=== PATIENT | male | born 1965 | race Asian ===

== ENCOUNTER 2018-12-26 10:38 | Emergency (ER) | payer OTHER ==
[~2018-12-26] VITALS: Ht 177.8 cm; Wt 73.0 kg
[~2018-12-26 10:38] MED LIST: ASPIRIN; BACLOFEN; CHOLESTEROL MEDS; NORCO; VICODIN; VITAMINS
[2018-12-26] MEDS ORDERED: ONDANSETRON HCL 4MG/2ML INJ IV STA (11:13)
[2018-12-26] MEDS ORDERED: MORPHINE SULFATE 4 MG/ML CPJ (NOT FOR IM USE) IV STA (11:13)
[2018-12-26] MEDS ORDERED: SODIUM CHLORIDE 0.9% 1000ML BAG (SEPSIS BOLUS) IV ONE (11:15)
[2018-12-26] MEDS ORDERED: CEFTRIAXONE 1 G PREMIX 50 ML IV ONE (11:15)
[2018-12-26 11:43] LABS: BASOPHILS % 0.5 % (0.0-2.0); EOSINOPHILS % 1.7 % (0.0-5.0); HEMATOCRIT. 42.3 % (42.0-52.0); HEMOGLOBIN. 14.4 g/dL (14.0-18.0); LYMPHOCYTES % 26.7 % (20.0-50.0); MEAN CORPUSCULAR HEMOGLOBIN 30.1 pg (28.0-32.0); MEAN CORPUSCULAR VOLUME 88.1 fL (80.0-94.0); MEAN PLATELET VOLUME 6.7 fl (7.4-10.4); MONOCYTES % 5.7 % (2.0-8.0); NEUTROPHILS % 65.4 % (40.0-76.0); PLATELET 326 x1000/uL (130-400); RED CELL DISTRIBUTION WIDTH 14.4 % (11.6-14.6)
[2018-12-26] MEDS ORDERED: CEFTRIAXONE 1 G PREMIX 50 ML IV SCH (11:45)
[2018-12-26] MEDS ORDERED: MORPHINE SULFATE 4 MG/ML CPJ (NOT FOR IM USE) IV SCH (11:45)
[2018-12-26] MEDS ORDERED: ONDANSETRON HCL 4MG/2ML INJ IV SCH (11:45)
[2018-12-26 11:46] LABS: CHLORIDE 102 mEq/L (98-107)
[2018-12-26 11:47] LABS: PARTIAL THROMBOPLASTIN TIME 31.1 sec (23.4-31.0); PROTHROMBIN TIME 10.4 sec (9.6-11.0)
[2018-12-26 11:52] LABS: CLARITY URINE CLOUDY (CLEAR); COLOR URINE YELLOW (YELLOW); KETONES URINE NEGATIVE (NEGATIVE); LEUKOCYTE ESTERASE URINE 3+ (NEGATIVE); NITRITE URINE POSITIVE (NEGATIVE); OCCULT BLOOD URINE NEGATIVE (NEGATIVE); PH URINE 8.5 (4.5-8.0); PROTEIN URINE NEGATIVE (NEGATIVE); SPECIFIC GRAVITY URINE 1.009 (1.005-1.030); UROBILINOGEN URINE 0.2 E.U./dL (0.2-1.0)
[2018-12-26] MEDS ORDERED: HYDROCODONE/ACETAMINOPHEN 5/325MG TABLET PO ONE (13:45)
[2018-12-26 14:13] VITALS: BP 137/68
== END 2018-12-26 14:51 | disposition short-term general hospital (02) ==
LOC: ER 10:38
DX: A41.9 Sepsis, unspecified organism (principal); N39.0 Urinary tract infection, site not specified; G82.20 Paraplegia, unspecified; Z93.3 Colostomy status
CPT/HCPCS: 36415; 71045; 80053; 81003; 83605; 83690; 83880; 84145; 84484; 85025; 85610; 85730; 87040; 87077; 87086; 87186; 93005; 96365; 96375; 99285; J0696; J2270; J2405; J7030

== ENCOUNTER 2019-02-17 08:10 | Emergency (ER) | payer OTHER ==
[~2019-02-17] VITALS: Ht 175.3 cm; Wt 80.0 kg
[2019-02-17] MEDS ORDERED: MORPHINE SULFATE 4 MG/ML CPJ (NOT FOR IM USE) IV STA (09:18)
[2019-02-17] MEDS ORDERED: ONDANSETRON HCL 4MG/2ML INJ IV STA (09:18)
[2019-02-17] MEDS ORDERED: SODIUM CHLORIDE 0.9% 1000ML BAG (SEPSIS BOLUS) IV ONE (09:30)
[2019-02-17 09:50] LABS: BASOPHILS % 0.2 % (0.0-2.0); EOSINOPHILS % 0.1 % (0.0-5.0); HEMATOCRIT. 46.8 % (42.0-52.0); HEMOGLOBIN. 15.5 g/dL (14.0-18.0); MEAN CORPUSCULAR HEMOGLOBIN 30.2 pg (28.0-32.0); MEAN CORPUSCULAR VOLUME 90.8 fL (80.0-94.0); MEAN PLATELET VOLUME 7.1 fl (7.4-10.4); MONOCYTES % 4.5 % (2.0-8.0); NEUTROPHILS % 82.2 % (40.0-76.0); PLATELET 459 x1000/uL (130-400); RED BLOOD CELL COUNT 5.15 mill/uL (4.7-6.1)
[2019-02-17 09:55] LABS: CHLORIDE 104 mEq/L (98-107)
[2019-02-17] MEDS ORDERED: VANCOMYCIN 1 G PREMIX 200 ML IV ONE (10:15)
[2019-02-17] MEDS ORDERED: PIPERACILLIN/TAZ 3.375G PREMIX 50 ML IV ONE (10:15)
[2019-02-17 11:09] LABS: CLARITY URINE TURBID (CLEAR); COLOR URINE YELLOW (YELLOW); KETONES URINE TRACE (NEGATIVE); LEUKOCYTE ESTERASE URINE 3+ (NEGATIVE); NITRITE URINE POSITIVE (NEGATIVE); OCCULT BLOOD URINE 1+ (NEGATIVE); PH URINE 5.5 (4.5-8.0); PROTEIN URINE 1+ (NEGATIVE); SPECIFIC GRAVITY URINE 1.032 (1.005-1.030); UROBILINOGEN URINE 0.2 E.U./dL (0.2-1.0)
[2019-02-17 12:28] VITALS: BP 155/100
== END 2019-02-17 13:20 | disposition short-term general hospital (02) ==
LOC: ER 08:17 → CANBEDREQ 12:58 → ER 13:20
DX: A41.9 Sepsis, unspecified organism (principal); L89.159 Pressure ulcer of sacral region, unspecified stage; L08.89 Other specified local infections of the skin and subcutaneous tissue; I10 Essential (primary) hypertension; G82.20 Paraplegia, unspecified; T14.8XXS Other injury of unspecified body region, sequela; Z85.038 Personal history of other malignant neoplasm of large intestine; Z93.3 Colostomy status
CPT/HCPCS: 36415; 71045; 74176; 80053; 81003; 83605; 85025; 85610; 87040; 87077; 87086; 87186; 93005; 96361; 96365; 96368; 96375; 99285; J2270; J2405; J2543; J3370; J7030; Z7610

== ENCOUNTER 2019-11-21 15:39 | Emergency (ER) | payer OTHER ==
[~2019-11-21] VITALS: Ht 175.3 cm; Wt 71.0 kg
[2019-11-21] MEDS ORDERED: SODIUM CHLORIDE 0.9% 1,000 ML IV ONE (18:09)
[2019-11-21] MEDS ORDERED: ONDANSETRON HCL 4MG/2ML INJ IV STA ×2 (18:09→21:50)
[2019-11-21] MEDS ORDERED: MORPHINE SULFATE 4 MG/ML CPJ (NOT FOR IM USE) IV STA ×2 (18:09→21:50)
[2019-11-21] MEDS ORDERED: PIPERACILLIN/TAZ 3.375G PREMIX 50 ML IV ONE (18:15)
[2019-11-21] MEDS ORDERED: VANCOMYCIN 1 G PREMIX 200 ML IV ONE (18:15)
[2019-11-21 19:03] LABS: BASOPHILS % 0.9 % (0.0-2.0); EOSINOPHILS % 3.4 % (0.0-5.0); HEMATOCRIT. 33.3 % (42.0-52.0); LYMPHOCYTES % 20.1 % (20.0-50.0); MEAN CORPUSCULAR HEMOGLOBIN 28.9 pg (28.0-32.0); MEAN CORPUSCULAR VOLUME 87.6 fL (80.0-94.0); MEAN PLATELET VOLUME 6.8 fl (7.4-10.4); MONOCYTES % 8.7 % (2.0-8.0); NEUTROPHILS % 66.9 % (40.0-76.0); PLATELET 442 x1000/uL (130-400); RED BLOOD CELL COUNT 3.81 mill/uL (4.7-6.1); RED CELL DISTRIBUTION WIDTH 14.5 % (11.6-14.6)
[2019-11-21 19:08] LABS: CHLORIDE 108 mEq/L (98-107)
[2019-11-21 19:55] LABS: CLARITY URINE CLOUDY (CLEAR); COLOR URINE YELLOW (YELLOW); KETONES URINE NEGATIVE (NEGATIVE); LEUKOCYTE ESTERASE URINE 1+ (NEGATIVE); NITRITE URINE POSITIVE (NEGATIVE); OCCULT BLOOD URINE NEGATIVE (NEGATIVE); PH URINE 7.5 (4.5-8.0); PROTEIN URINE NEGATIVE (NEGATIVE); SPECIFIC GRAVITY URINE 1.019 (1.005-1.030)
[2019-11-21] MEDS ORDERED: CEFTRIAXONE 1 G PREMIX 50 ML IV ONE (20:00)
[2019-11-21 23:00] VITALS: BP 161/84
== END 2019-11-21 23:15 | disposition home or self-care (01) ==
LOC: ER 15:39 → CANBEDREQ 23:22
DX: N30.00 Acute cystitis without hematuria (principal); L89.159 Pressure ulcer of sacral region, unspecified stage; G82.20 Paraplegia, unspecified; F17.290 Nicotine dependence, other tobacco product, uncomplicated; I10 Essential (primary) hypertension; Z85.9 Personal history of malignant neoplasm, unspecified; Z79.899 Other long term (current) drug therapy
CPT/HCPCS: 36415; 71045; 80053; 81003; 83605; 85025; 87040; 87804; 93005; 96365; 96367; 96368; 96375; 96376; 99285; J0696; J2270; J2405; J2543; J3370; J7030

== ENCOUNTER 2020-09-25 12:16 | Inpatient (IN) | payer OTHER ==
[~2020-09-25] VITALS: Ht 175.3 cm; Wt 86.2 kg
[2020-09-25 13:47] LABS: BASOPHILS % 0.3 % (0.0-2.0); EOSINOPHILS % 0.1 % (0.0-5.0); HEMATOCRIT. 37.4 % (42.0-52.0); HEMOGLOBIN. 11.3 g/dL (14.0-18.0); LYMPHOCYTES % 11.3 % (20.0-50.0); MEAN CORPUSCULAR VOLUME 69.6 fL (80.0-94.0); MEAN PLATELET VOLUME 7.3 fl (7.4-10.4); MONOCYTES % 6.6 % (2.0-8.0); NEUTROPHILS % 81.7 % (40.0-76.0); PLATELET 493 x1000/uL (130-400); RED BLOOD CELL COUNT 5.38 mill/uL (4.7-6.1); RED CELL DISTRIBUTION WIDTH 18.2 % (11.6-14.6)
[2020-09-25 13:52] LABS: CHLORIDE 101 mEq/L (98-107)
[2020-09-25 13:54] LABS: PROTHROMBIN TIME 10.8 sec (9.6-11.0)
[2020-09-25 14:10] LABS: CLARITY URINE TURBID (CLEAR); COLOR URINE DARK YELLOW (YELLOW); KETONES URINE TRACE (NEGATIVE); LEUKOCYTE ESTERASE URINE 3+ (NEGATIVE); NITRITE URINE NEGATIVE (NEGATIVE); OCCULT BLOOD URINE NEGATIVE (NEGATIVE); PH URINE >=9.0 (4.5-8.0); PROTEIN URINE 2+ (NEGATIVE); SPECIFIC GRAVITY URINE 1.035 (1.005-1.030)
[2020-09-25] MEDS ORDERED: MORPHINE SULFATE 4 MG/ML CPJ (NOT FOR IM USE) IV STA (14:15)
[2020-09-25] MEDS ORDERED: SODIUM CHLORIDE 0.9% 1,000 ML IV ONE (14:15)
[2020-09-25] MEDS ORDERED: ONDANSETRON HCL 4MG/2ML INJ IV STA (14:15)
[2020-09-25 14:57] LABS: PLATELET ESTIMATE INCREASED
[2020-09-25] MEDS ORDERED: CEFTRIAXONE 1 G PREMIX 50 ML IV ONE (15:00)
[2020-09-25 17:26] VITALS: BP 117/69
[2020-09-25] MEDS ORDERED: ATOR20TA MT (17:52)
[2020-09-25] MEDS: SODIUM CHLORIDE 0.9% 1,000 ML IV SCH (18:45)
[2020-09-25] MEDS ORDERED: ONDANSETRON HCL 4MG/2ML INJ IV PRN (18:45)
[2020-09-25] MEDS ORDERED: ACETAMINOPHEN 650MG SUPP PR PRN ×2 (18:45)
[2020-09-25] MEDS ORDERED: LORAZEPAM 2MG/ML CPJ IV PRN (18:45)
[2020-09-25 20:00] VITALS: BP 121/73
[2020-09-25] MEDS ORDERED: ENOXAPARIN 40MG/0.4ML SYR SUBCUT SCH (20:00)
[2020-09-25] MEDS: PANTOPRAZOLE SODIUM 40 MG/VIAL IV SCH (22:05)
[2020-09-25] MEDS: LEVOFLOXACIN 500MG PREMIX 100 ML IV SCH (22:21)
[2020-09-25] MEDS: MORPHINE SULFATE 4 MG/ML CPJ (NOT FOR IM USE) IV PRN (22:28)
[2020-09-26] VITALS: BP 101/55
[2020-09-26] MEDS: SODIUM CHLORIDE 0.9% 1,000 ML IV SCH ×3 (02:16→15:24)
[2020-09-26] MEDS: MORPHINE SULFATE 4 MG/ML CPJ (NOT FOR IM USE) IV PRN ×5 (03:21→22:46)
[2020-09-26 04:00] VITALS: BP 129/74
[2020-09-26 08:00] VITALS: BP 120/69
[2020-09-26] MEDS: PANTOPRAZOLE SODIUM 40 MG/VIAL IV SCH (08:17)
[2020-09-26 12:00] VITALS: BP 119/60
[2020-09-26 13:07] LABS: BASOPHILS % 0.6 % (0.0-2.0); EOSINOPHILS % 1.9 % (0.0-5.0); HEMATOCRIT. 30.3 % (42.0-52.0); HEMOGLOBIN. 9.1 g/dL (14.0-18.0); LYMPHOCYTES % 17.9 % (20.0-50.0); MEAN CORPUSCULAR HEMOGLOBIN 20.9 pg (28.0-32.0); MEAN CORPUSCULAR VOLUME 69.4 fL (80.0-94.0); MEAN PLATELET VOLUME 7.4 fl (7.4-10.4); MONOCYTES % 9.5 % (2.0-8.0); NEUTROPHILS % 70.1 % (40.0-76.0); PLATELET 335 x1000/uL (130-400); RED BLOOD CELL COUNT 4.36 mill/uL (4.7-6.1); RED CELL DISTRIBUTION WIDTH 17.7 % (11.6-14.6)
[2020-09-26 14:00] LABS: CHLORIDE 110 mEq/L (98-107); PHOSPHORUS 3.2 mg/dL (2.5-4.9)
[2020-09-26 16:00] VITALS: BP 157/85
[2020-09-26] MEDS ORDERED: THROAT LOZENGES-BENZOCAINE/MENTH/CETYLPYRD CL LOZENGES MM PRN (18:00)
[2020-09-26 20:00] VITALS: BP 130/71
[2020-09-26] MEDS: LEVOFLOXACIN 500MG PREMIX 100 ML IV SCH (20:40)
[2020-09-27] VITALS: BP 121/67
[2020-09-27] MEDS: SODIUM CHLORIDE 0.9% 1,000 ML IV SCH (03:03)
[2020-09-27] MEDS: MORPHINE SULFATE 4 MG/ML CPJ (NOT FOR IM USE) IV PRN ×2 (03:03→08:55)
[2020-09-27 04:00] VITALS: BP 113/66
[2020-09-27 08:00] VITALS: BP 115/62
[2020-09-27] MEDS: PANTOPRAZOLE SODIUM 40 MG/VIAL IV SCH (08:55)
[2020-09-27 12:00] VITALS: BP 102/58
[2020-09-27] MEDS ORDERED: SODIUM HYPOCHLORITE 0.125% 473ML SOLUTION TOP PRN (14:00)
[2020-09-27] MEDS: DEXT 5%/0.45% NACL KCL 20MEQ/L 1,000 ML IV SCH (14:02)
[2020-09-27 16:00] VITALS: BP 99/46
[2020-09-27] MEDS: MORPHINE SULFATE 2 MG/ML CPJ (NOT FOR IM USE) IV PRN ×2 (16:14→20:32)
[2020-09-27 20:00] VITALS: BP 114/55
[2020-09-27] MEDS: LEVOFLOXACIN 500MG PREMIX 100 ML IV SCH (20:23)
[2020-09-28] VITALS: BP 113/57
[2020-09-28] MEDS: DEXT 5%/0.45% NACL KCL 20MEQ/L 1,000 ML IV SCH ×3 (01:26→21:12)
[2020-09-28] MEDS: MORPHINE SULFATE 2 MG/ML CPJ (NOT FOR IM USE) IV PRN ×5 (01:27→18:36)
[2020-09-28 04:00] VITALS: BP 100/55
[2020-09-28 08:00] VITALS: BP 116/52
[2020-09-28] MEDS: PANTOPRAZOLE SODIUM 40 MG/VIAL IV SCH (09:34)
[2020-09-28 20:00] VITALS: BP 125/54
[2020-09-28] MEDS: LEVOFLOXACIN 500MG PREMIX 100 ML IV SCH (21:12)
[2020-09-29] VITALS: BP 137/69
[2020-09-29] MEDS: MORPHINE SULFATE 2 MG/ML CPJ (NOT FOR IM USE) IV PRN ×4 (00:26→18:23)
[2020-09-29 04:00] VITALS: BP 130/76
[2020-09-29 08:00] VITALS: BP 126/74
[2020-09-29] MEDS: PANTOPRAZOLE SODIUM 40 MG/VIAL IV SCH (09:42)
[2020-09-29 12:00] VITALS: BP 130/74
[2020-09-29] MEDS: DEXT 5%/0.45% NACL KCL 20MEQ/L 1,000 ML IV SCH (14:31)
[2020-09-29] MEDS: SODIUM CHLORIDE 0.9% 1,000 ML IV SCH (18:23)
[2020-09-29 20:00] VITALS: BP 130/86
[2020-09-30] VITALS: BP 113/70
[2020-09-30] MEDS: LEVOFLOXACIN 500MG PREMIX 100 ML IV SCH ×2 (00:04→21:28)
[2020-09-30] MEDS: MORPHINE SULFATE 2 MG/ML CPJ (NOT FOR IM USE) IV PRN ×6 (00:06→22:26)
[2020-09-30] MEDS: DEXT 5%/0.45% NACL KCL 20MEQ/L 1,000 ML IV SCH (01:58)
[2020-09-30 04:00] VITALS: BP 117/64
[2020-09-30 08:00] VITALS: BP 113/71
[2020-09-30] MEDS: PANTOPRAZOLE SODIUM 40 MG/VIAL IV SCH (09:13)
[2020-09-30 12:00] VITALS: BP 101/65
[2020-09-30] MEDS: SODIUM CHLORIDE 0.9% 1,000 ML IV SCH (13:58)
[2020-09-30 16:00] VITALS: BP 106/62
[2020-09-30 20:00] VITALS: BP 111/71
[2020-10-01] VITALS: BP 113/60
[2020-10-01] MEDS: MORPHINE SULFATE 2 MG/ML CPJ (NOT FOR IM USE) IV PRN ×5 (02:35→19:23)
[2020-10-01] MEDS: DEXT 5%/0.45% NACL KCL 20MEQ/L 1,000 ML IV SCH (02:38)
[2020-10-01 08:00] VITALS: BP 115/71
[2020-10-01] MEDS: PANTOPRAZOLE SODIUM 40 MG/VIAL IV SCH (09:24)
[2020-10-01] MEDS ORDERED: DIATR MEGLU/DIATRIZOATE SOLN 120ML ONE (10:38)
[2020-10-01 16:00] VITALS: BP 102/64
[2020-10-01 20:00] VITALS: BP 105/65
[2020-10-02] VITALS: BP 107/58
[2020-10-02] MEDS: MORPHINE SULFATE 2 MG/ML CPJ (NOT FOR IM USE) IV PRN ×5 (00:38→23:30)
[2020-10-02 04:00] VITALS: BP 121/66
[2020-10-02 08:00] VITALS: BP 102/60
[2020-10-02] MEDS: FAMOTIDINE 20MG/2ML VIAL IV SCH ×2 (09:45→21:23)
[2020-10-02] MEDS: SODIUM CHLORIDE 0.9% 1,000 ML IV SCH (11:27)
[2020-10-02 12:00] VITALS: BP 116/65
[2020-10-02 16:00] VITALS: BP 109/56
[2020-10-02 20:00] VITALS: BP 142/70
[2020-10-03] VITALS: BP 114/74
[2020-10-03 04:00] VITALS: BP 124/71
[2020-10-03] MEDS: MORPHINE SULFATE 2 MG/ML CPJ (NOT FOR IM USE) IV PRN ×4 (05:21→20:48)
[2020-10-03] MEDS: SODIUM CHLORIDE 0.9% 1,000 ML IV SCH ×2 (05:25→14:43)
[2020-10-03 08:00] VITALS: BP 137/70
[2020-10-03] MEDS: FAMOTIDINE 20MG/2ML VIAL IV SCH ×2 (09:37→20:48)
[2020-10-03 12:00] VITALS: BP 109/59
[2020-10-03 16:00] VITALS: BP 120/80
[2020-10-03 20:00] VITALS: BP 136/69
[2020-10-04] VITALS: BP 140/62
[2020-10-04 04:00] VITALS: BP 139/68
[2020-10-04] MEDS: MORPHINE SULFATE 2 MG/ML CPJ (NOT FOR IM USE) IV PRN ×5 (05:28→21:13)
[2020-10-04] MEDS: SODIUM CHLORIDE 0.9% 1,000 ML IV SCH ×2 (05:59→18:15)
[2020-10-04 08:00] VITALS: BP 144/83
[2020-10-04] MEDS: FAMOTIDINE 20MG/2ML VIAL IV SCH ×2 (09:53→21:13)
[2020-10-04 12:00] VITALS: BP 126/76
[2020-10-04 16:00] VITALS: BP 125/75
[2020-10-04 20:00] VITALS: BP 129/69
[2020-10-05] VITALS (7 sets, daily range): BP systolic 18–146; BP diastolic 64–125
[2020-10-05] MEDS: MORPHINE SULFATE 2 MG/ML CPJ (NOT FOR IM USE) IV PRN ×3 (04:46→14:53)
[2020-10-05] MEDS: SODIUM CHLORIDE 0.9% 1,000 ML IV SCH (05:44)
[2020-10-05] MEDS: FAMOTIDINE 20MG/2ML VIAL IV SCH (09:23)
== END 2020-10-05 20:10 | disposition home health service (06) | DRG 872 ==
LOC: ER 12:35 → 6EST 14:57 → EDBEDREQ 15:09 → ENRESERV 16:23
PROVIDERS: ADMIT Internal Medicine; ATTEND Internal Medicine
PROC: 0D9670Z Drainage of Stomach with Drainage Device, Via Natural or Artificial Opening (ICD-10-PCS; principal; 2020-09-25)
DX: A41.9 Sepsis, unspecified organism (principal); G82.20 Paraplegia, unspecified; N39.0 Urinary tract infection, site not specified; K56.600 Partial intestinal obstruction, unspecified as to cause; I10 Essential (primary) hypertension; K80.20 Calculus of gallbladder without cholecystitis without obstruction; Z93.3 Colostomy status; Z82.49 Family history of ischemic heart disease and other diseases of the circulatory system; Z79.899 Other long term (current) drug therapy
CPT/HCPCS: 36415; 71045; 74018; 74176; 74250; 80053; 81003; 83735; 83880; 84100; 84484; 85025; 93005; 93970; 99291; C9113; J0696; J1650; J1956; J2270; J2405; J3490; J7030; Q9963

== ENCOUNTER 2021-10-30 14:08 | Inpatient (IN) | payer OTHER ==
[~2021-10-30] VITALS: Ht 175.3 cm; Wt 74.2 kg
[~2021-10-30 14:08] MED LIST changes: +ATOR20TA MT
[2021-10-30] MEDS ORDERED: ONDANSETRON HCL 4MG/2ML INJ IV ONE (14:30)
[2021-10-30 16:11] LABS: BASOPHILS % 0.2 % (0.0-2.0); EOSINOPHILS % 2.2 % (0.0-5.0); HEMOGLOBIN. 9.7 g/dL (14.0-18.0); LYMPHOCYTES % 10.5 % (20.0-50.0); MEAN CORPUSCULAR HEMOGLOBIN 20.2 pg (28.0-32.0); MEAN CORPUSCULAR VOLUME 68.6 fL (80.0-94.0); MEAN PLATELET VOLUME 7.2 fl (7.4-10.4); MONOCYTES % 5.8 % (2.0-8.0); NEUTROPHILS % 81.3 % (40.0-76.0); PLATELET 591 x1000/uL (130-400); RED BLOOD CELL COUNT 4.81 mill/uL (4.7-6.1); RED CELL DISTRIBUTION WIDTH 17.8 % (11.6-14.6)
[2021-10-30 16:16] LABS: CHLORIDE 101 mEq/L (98-107)
[2021-10-30] MEDS ORDERED: MORPHINE SULFATE 4 MG/ML CPJ (NOT FOR IM USE) IV ONE (17:15)
[2021-10-30] MEDS ORDERED: CEFTRIAXONE 1 G PREMIX 50 ML IV ONE (17:30)
[2021-10-30] MEDS ORDERED: METRONIDAZOLE 500 MG PREMIX 100 ML IV ONE (17:30)
[2021-10-30 18:21] LABS: PLATELET ESTIMATE MARKEDLY INCREASED
[2021-10-30] MEDS ORDERED: ONDANSETRON HCL 4MG/2ML INJ IV PRN (19:45)
[2021-10-30] MEDS ORDERED: ACETAMINOPHEN 650MG SUPP PR PRN (19:45)
[2021-10-30] MEDS ORDERED: PIPERACILLIN/TAZOBACTAM 3.375 G in DEXTROSE 5% WATER 50 ML IV SCH (19:45)
[2021-10-30] MEDS ORDERED: PIPERACILLIN/TAZ 3.375G PREMIX 50 ML IV NR (20:15)
[2021-10-30] MEDS: DEXT 5%/0.45% NACL 1000ML 1,000 ML IV SCH (20:45)
[2021-10-30] MEDS: ENOXAPARIN 40MG/0.4ML SYR SUBCUT SCH (22:00)
[2021-10-30 22:59] LABS: CLARITY URINE TURBID (CLEAR); COLOR URINE YELLOW (YELLOW); KETONES URINE NEGATIVE (NEGATIVE); LEUKOCYTE ESTERASE URINE TRACE (NEGATIVE); NITRITE URINE POSITIVE (NEGATIVE); OCCULT BLOOD URINE NEGATIVE (NEGATIVE); PH URINE >=9.0 (4.5-8.0); PROTEIN URINE 2+ (NEGATIVE); SPECIFIC GRAVITY URINE >1.040 (1.005-1.030); UROBILINOGEN URINE 0.2 E.U./dL (0.2-1.0)
[2021-10-30] MEDS: HYDROMORPHONE HCL/PF 2MG/ML CPJ IV PRN (23:54)
[2021-10-31] VITALS (8 sets, daily range): BP systolic 94–110; BP diastolic 52–75
[2021-10-31 04:06] LABS: HEMATOCRIT. 31.1 % (42.0-52.0); HEMOGLOBIN. 9.2 g/dL (14.0-18.0); MEAN CORPUSCULAR HEMOGLOBIN 20.4 pg (28.0-32.0); MEAN CORPUSCULAR VOLUME 68.8 fL (80.0-94.0); MEAN PLATELET VOLUME 7.4 fl (7.4-10.4); PLATELET 562 x1000/uL (130-400); RED BLOOD CELL COUNT 4.52 mill/uL (4.7-6.1); RED CELL DISTRIBUTION WIDTH 17.8 % (11.6-14.6)
[2021-10-31 04:21] LABS: CHLORIDE 103 mEq/L (98-107)
[2021-10-31] MEDS: HYDROMORPHONE HCL/PF 2MG/ML CPJ IV PRN ×4 (05:22→20:11)
[2021-10-31] MEDS ORDERED: PIPERACILLIN/TAZOBACTAM 3.375G in DEXT 5% WATER 50ML IV SCH (06:00)
[2021-10-31] MEDS ORDERED: NALOXONE HCL 0.4MG/ML VIAL IV PRN (06:45)
[2021-10-31] MEDS: PIPERACILLIN/TAZOBACTAM 3.375G in DEXT 5% WATER 50ML IV SCH ×3 (08:57→21:29)
[2021-10-31] MEDS: DEXT 5%/0.45% NACL 1000ML 1,000 ML IV SCH ×2 (08:57→21:30)
[2021-10-31 12:50] LABS: PLATELET ESTIMATE INCREASED
[2021-10-31] MEDS: ENOXAPARIN 40MG/0.4ML SYR SUBCUT SCH (20:10)
[2021-11-01] VITALS: BP 111/63
[2021-11-01] MEDS: HYDROMORPHONE HCL/PF 2MG/ML CPJ IV PRN ×5 (01:44→21:32)
[2021-11-01 04:00] VITALS: BP 102/54
[2021-11-01] MEDS: PIPERACILLIN/TAZOBACTAM 3.375G in DEXT 5% WATER 50ML IV SCH ×3 (05:47→23:10)
[2021-11-01 08:00] VITALS: BP 139/80
[2021-11-01] MEDS: DEXT 5%/0.45% NACL 1000ML 1,000 ML IV SCH (11:27)
[2021-11-01 12:00] VITALS: BP 137/75
[2021-11-01 16:00] VITALS: BP 127/72
[2021-11-01] MEDS: VANCOMYCIN 1GM PMX (XELLIA) 200 ML IV SCH ×2 (18:33→21:32)
[2021-11-01 20:00] VITALS: BP 115/71
[2021-11-01] MEDS: ENOXAPARIN 40MG/0.4ML SYR SUBCUT SCH (21:32)
[2021-11-02] VITALS (7 sets, daily range): BP systolic 109–137; BP diastolic 60–79
[2021-11-02] MEDS: DEXT 5%/0.45% NACL 1000ML 1,000 ML IV SCH ×2 (03:07→14:23)
[2021-11-02] MEDS: HYDROMORPHONE HCL/PF 2MG/ML CPJ IV PRN ×5 (03:07→18:17)
[2021-11-02] MEDS: PIPERACILLIN/TAZOBACTAM 3.375G in DEXT 5% WATER 50ML IV SCH ×2 (06:03→14:22)
[2021-11-02 09:43] LABS: BASOPHILS % 0.5 % (0.0-2.0); EOSINOPHILS % 1.7 % (0.0-5.0); HEMATOCRIT. 26.8 % (42.0-52.0); LYMPHOCYTES % 16.5 % (20.0-50.0); MEAN CORPUSCULAR HEMOGLOBIN 20.5 pg (28.0-32.0); MEAN CORPUSCULAR VOLUME 68.8 fL (80.0-94.0); MEAN PLATELET VOLUME 7.2 fl (7.4-10.4); MONOCYTES % 7.6 % (2.0-8.0); NEUTROPHILS % 73.7 % (40.0-76.0); PLATELET 396 x1000/uL (130-400); RED BLOOD CELL COUNT 3.89 mill/uL (4.7-6.1)
[2021-11-02 09:55] LABS: CHLORIDE 111 mEq/L (98-107)
[2021-11-02] MEDS: VANCOMYCIN 1GM PMX (XELLIA) 200 ML IV SCH ×2 (10:58→17:05)
== END 2021-11-02 21:40 | disposition short-term general hospital (02) | DRG 580 ==
LOC: ER 14:18 → MICUSO 17:45 → 5WST 10-31 06:03
PROVIDERS: ADMIT Hospitalist; ATTEND Hospitalist
PROC: 0KBP0ZZ Excision of Left Hip Muscle, Open Approach (ICD-10-PCS; principal; 2021-11-02)
DX: L89.324 Pressure ulcer of left buttock, stage 4 (principal); G82.20 Paraplegia, unspecified; E46 Unspecified protein-calorie malnutrition; N39.0 Urinary tract infection, site not specified; K56.50 Intestinal adhesions [bands], unspecified as to partial versus complete obstruction; I10 Essential (primary) hypertension; Z20.822 Contact with and (suspected) exposure to COVID-19; N31.9 Neuromuscular dysfunction of bladder, unspecified; Z93.3 Colostomy status; Z74.01 Bed confinement status; Z79.899 Other long term (current) drug therapy; Z82.49 Family history of ischemic heart disease and other diseases of the circulatory system
CPT/HCPCS: 36415; 71045; 74018; 74177; 80048; 80053; 80202; 81003; 82040; 83605; 84134; 85025; 87426; 99285; J0696; J1170; J1650; J2270; J2405; J2543; J3370; J3490; J7060

== ENCOUNTER 2021-11-05 21:39 | Emergency (ER) | payer OTHER ==
[~2021-11-05] VITALS: Ht 162.6 cm; Wt 57.0 kg
[2021-11-05] MEDS ORDERED: ONDANSETRON HCL 4MG/2ML INJ IV STA (22:37)
[2021-11-05] MEDS ORDERED: SODIUM CHLORIDE 0.9% 1,000 ML IV ONE (22:45)
[2021-11-05 23:31] LABS: CHLORIDE 104 mEq/L (98-107)
[2021-11-05 23:35] LABS: EOSINOPHILS % 4.3 % (0.0-5.0); HEMATOCRIT. 26.8 % (42.0-52.0); LYMPHOCYTES % 16.8 % (20.0-50.0); MEAN CORPUSCULAR HEMOGLOBIN 20.3 pg (28.0-32.0); MEAN CORPUSCULAR VOLUME 68.5 fL (80.0-94.0); MEAN PLATELET VOLUME 7.4 fl (7.4-10.4); MONOCYTES % 7.6 % (2.0-8.0); NEUTROPHILS % 70.3 % (40.0-76.0); PLATELET 440 x1000/uL (130-400); RED BLOOD CELL COUNT 3.92 mill/uL (4.7-6.1); RED CELL DISTRIBUTION WIDTH 18.2 % (11.6-14.6)
[2021-11-06] MEDS ORDERED: KETOROLAC 15MG/ML VIAL IV ONE (00:45)
[2021-11-06] MEDS ORDERED: MORPHINE SULFATE 4 MG/ML CPJ (NOT FOR IM USE) IV STA (01:38)
[2021-11-06] MEDS ORDERED: ONDANSETRON HCL 4MG/2ML INJ IV STA (01:38)
[2021-11-06 04:00] VITALS: BP 126/71
== END 2021-11-06 04:46 | disposition short-term general hospital (02) ==
LOC: ER 21:39
DX: R10.33 Periumbilical pain (principal); K56.609 Unspecified intestinal obstruction, unspecified as to partial versus complete obstruction; I10 Essential (primary) hypertension; Z85.6 Personal history of leukemia; Z98.890 Other specified postprocedural states; Z20.822 Contact with and (suspected) exposure to COVID-19
CPT/HCPCS: 36415; 74176; 80053; 83690; 85025; 87426; 93005; 96361; 96374; 96375; 96376; 99285; J1885; J2270; J2405; J7030

== ENCOUNTER 2021-11-19 17:38 | Emergency (ER) | payer OTHER ==
[~2021-11-19] VITALS: Ht 175.3 cm; Wt 78.0 kg
[2021-11-19] MEDS ORDERED: atorvastatin (18:00)
[2021-11-19 19:36] LABS: HEMOGLOBIN. 8.3 g/dL (14.0-18.0); MEAN CORPUSCULAR HEMOGLOBIN 23.1 pg (28.0-32.0); MEAN CORPUSCULAR VOLUME 75.2 fL (80.0-94.0); RED BLOOD CELL COUNT 3.59 mill/uL (4.7-6.1); RED CELL DISTRIBUTION WIDTH 22.8 % (11.6-14.6)
[2021-11-19 19:39] LABS: CLARITY URINE CLOUDY (CLEAR); COLOR URINE YELLOW (YELLOW); KETONES URINE NEGATIVE (NEGATIVE); LEUKOCYTE ESTERASE URINE 3+ (NEGATIVE); NITRITE URINE NEGATIVE (NEGATIVE); OCCULT BLOOD URINE NEGATIVE (NEGATIVE); PH URINE 8.5 (4.5-8.0); PROTEIN URINE 1+ (NEGATIVE); SPECIFIC GRAVITY URINE 1.025 (1.005-1.030)
[2021-11-19 19:44] LABS: CHLORIDE 106 mEq/L (98-107)
[2021-11-19 19:48] LABS: ETHANOL BLOOD < 10 mg/dL
[2021-11-19 19:57] LABS: *AMPHETAMINES SCREEN URINE NEGATIVE (NEGATIVE); *BARBITURATES SCREEN URINE NEGATIVE (NEGATIVE); *BENZODIAZEPINES SCREEN URINE NEGATIVE (NEGATIVE); *COCAINE SCREEN URINE NEGATIVE (NEGATIVE); CANNABINOID URINE SCREEN NEGATIVE (NEGATIVE); METHADONE URINE SCREEN NEGATIVE (NEGATIVE); OPIATES URINE SCREEN PRESUMTIVE POSITIVE (NEGATIVE); PHENCYCLIDINE URINE SCREEN NEGATIVE (NEGATIVE)
[2021-11-19 21:52] LABS: PLATELET ESTIMATE INCREASED
[2021-11-19 21:53] LABS: MEAN PLATELET VOLUME 7.4 fl (7.4-10.4); PLATELET 756 x1000/uL (130-400)
[2021-11-19] MEDS ORDERED: CEFTRIAXONE 1 G PREMIX 50 ML IV SCH (22:00)
[2021-11-19] MEDS ORDERED: MORPHINE SULFATE 4 MG/ML CPJ (NOT FOR IM USE) IV NR (23:00)
[2021-11-20] VITALS: BP 102/72
== END 2021-11-20 00:23 | disposition short-term general hospital (02) ==
LOC: ER 17:38
DX: N39.0 Urinary tract infection, site not specified (principal); R10.84 Generalized abdominal pain; Z93.3 Colostomy status; Z85.6 Personal history of leukemia; I10 Essential (primary) hypertension; Z79.899 Other long term (current) drug therapy; Z20.822 Contact with and (suspected) exposure to COVID-19
CPT/HCPCS: 36415; 74176; 80053; 80305; 80320; 81003; 83605; 83690; 85025; 87077; 87086; 87186; 87426; 96365; 96375; 99285; J2270; G0480

== ENCOUNTER 2021-12-07 22:12 | Inpatient (IN) | payer OTHER ==
[~2021-12-07] VITALS: Ht 175.3 cm; Wt 81.0 kg
[~2021-12-07 22:12] MED LIST changes: +atorvastatin
[2021-12-07] MEDS ORDERED: MORPHINE SULFATE 4 MG/ML CPJ (NOT FOR IM USE) IV STA (23:14)
[2021-12-07] MEDS ORDERED: ONDANSETRON HCL 4MG/2ML INJ IV STA (23:14)
[2021-12-07] MEDS ORDERED: SODIUM CHLORIDE 0.9% 1,000 ML IV ONE (23:15)
[2021-12-07 23:41] LABS: BASOPHILS % 1.4 % (0.0-2.0); EOSINOPHILS % 2.5 % (0.0-5.0); LYMPHOCYTES % 16.6 % (20.0-50.0); MEAN CORPUSCULAR HEMOGLOBIN 21.2 pg (28.0-32.0); MEAN CORPUSCULAR VOLUME 72.2 fL (80.0-94.0); MEAN PLATELET VOLUME 7.2 fl (7.4-10.4); MONOCYTES % 5.5 % (2.0-8.0); PLATELET 651 x1000/uL (130-400); RED BLOOD CELL COUNT 2.16 mill/uL (4.7-6.1); RED CELL DISTRIBUTION WIDTH 20.9 % (11.6-14.6)
[2021-12-07 23:46] LABS: CHLORIDE 103 mEq/L (98-107)
[2021-12-07 23:50] LABS: ETHANOL BLOOD < 10 mg/dL
[2021-12-08] VITALS (8 sets, daily range): BP systolic 97–119; BP diastolic 55–80
[2021-12-08 00:15] LABS: HEMATOCRIT. 15.6 % (42.0-52.0); HEMOGLOBIN. 4.6 g/dL (14.0-18.0)
[2021-12-08] MEDS ORDERED: PANTOPRAZOLE SODIUM 40 MG/VIAL IV ONE (00:30)
[2021-12-08 03:49] LABS: CLARITY URINE TURBID (CLEAR); COLOR URINE YELLOW (YELLOW); KETONES URINE 2+ (NEGATIVE); LEUKOCYTE ESTERASE URINE 3+ (NEGATIVE); NITRITE URINE NEGATIVE (NEGATIVE); OCCULT BLOOD URINE 1+ (NEGATIVE); PROTEIN URINE 1+ (NEGATIVE); SPECIFIC GRAVITY URINE 1.017 (1.005-1.030); UROBILINOGEN URINE 0.2 E.U./dL (0.2-1.0)
[2021-12-08 04:10] LABS: *BARBITURATES SCREEN URINE NEGATIVE (NEGATIVE); *BENZODIAZEPINES SCREEN URINE NEGATIVE (NEGATIVE)
[2021-12-08 04:11] LABS: *AMPHETAMINES SCREEN URINE NEGATIVE (NEGATIVE); *COCAINE SCREEN URINE NEGATIVE (NEGATIVE); CANNABINOID URINE SCREEN NEGATIVE (NEGATIVE); METHADONE URINE SCREEN NEGATIVE (NEGATIVE); OPIATES URINE SCREEN PRESUMTIVE POSITIVE (NEGATIVE); PHENCYCLIDINE URINE SCREEN NEGATIVE (NEGATIVE)
[2021-12-08] MEDS ORDERED: CEFTRIAXONE 1 G PREMIX 50 ML IV NR (04:15)
[2021-12-08] MEDS ORDERED: IOHEXOL-300 100 ML BOTTLE ONE ×2 (05:30→21:32)
[2021-12-08] MEDS ORDERED: MORPHINE SULFATE 2 MG/ML CPJ (NOT FOR IM USE) IV NR ×2 (05:30→23:30)
[2021-12-08 09:14] LABS: HEMATOCRIT 19.9 % (42.0-52.0); HEMOGLOBIN 6.4 g/dL (14.0-18.0)
[2021-12-08] MEDS ORDERED: ONDANSETRON HCL 4MG/2ML INJ IV PRN (10:00)
[2021-12-08] MEDS ORDERED: ACETAMINOPHEN 325MG TABLET PO PRN (10:00)
[2021-12-08] MEDS ORDERED: CEFTRIAXONE 1 G PREMIX 50 ML IV SCH (10:00)
[2021-12-08] MEDS: HYDROCODONE/ACETAMINOPHEN 5/325MG TABLET PO PRN ×2 (16:51→22:05)
[2021-12-08] MEDS: PANTOPRAZOLE SODIUM 40 MG/VIAL IV SCH (17:00)
[2021-12-08 20:41] LABS: TOTAL IRON BINDING CAPACITY 313 ug/dL (250-450)
[2021-12-08 21:00] LABS: FOLIC ACID (FOLATE) SERUM 18.7 ng/mL (>5.38)
[2021-12-08 21:26] LABS: INR 1.1; PROTHROMBIN TIME 11.6 sec (9.6-11.0)
[2021-12-08] MEDS ORDERED: NALOXONE HCL 0.4MG/ML VIAL IV PRN (22:15)
[2021-12-09] VITALS: BP 105/65
[2021-12-09 04:00] VITALS: BP 113/65
[2021-12-09] MEDS: HYDROCODONE/ACETAMINOPHEN 5/325MG TABLET PO PRN ×3 (05:26→20:20)
[2021-12-09] MEDS: CEFTRIAXONE 1,000 MG in DEXTROSE 5% WATER 50 ML IV SCH (06:02)
[2021-12-09 07:40] LABS: BASOPHILS % 0.6 % (0.0-2.0); EOSINOPHILS % 3.8 % (0.0-5.0); HEMOGLOBIN. 7.7 g/dL (14.0-18.0); LYMPHOCYTES % 15.9 % (20.0-50.0); MEAN CORPUSCULAR HEMOGLOBIN 26.2 pg (28.0-32.0); MEAN CORPUSCULAR VOLUME 78.3 fL (80.0-94.0); MEAN PLATELET VOLUME 7.3 fl (7.4-10.4); MONOCYTES % 9.7 % (2.0-8.0); PLATELET 443 x1000/uL (130-400); RED BLOOD CELL COUNT 2.94 mill/uL (4.7-6.1); RED CELL DISTRIBUTION WIDTH 20.9 % (11.6-14.6)
[2021-12-09 07:42] LABS: CHLORIDE 107 mEq/L (98-107)
[2021-12-09 08:00] VITALS: BP 96/8
[2021-12-09] MEDS ORDERED: PANTOPRAZOLE SODIUM 40 MG/VIAL IV SCH (09:00)
[2021-12-09] MEDS: PANTOPRAZOLE SODIUM 40 MG/VIAL IV SCH ×2 (10:07→17:40)
[2021-12-09 20:20] VITALS: BP 112/60
[2021-12-10 00:25] VITALS: BP 118/64
[2021-12-10 04:00] VITALS: BP 87/46
[2021-12-10] MEDS: CEFTRIAXONE 1,000 MG in DEXTROSE 5% WATER 50 ML IV SCH (04:52)
[2021-12-10] MEDS: HYDROCODONE/ACETAMINOPHEN 5/325MG TABLET PO PRN ×4 (04:52→21:57)
[2021-12-10 08:00] VITALS: BP 124/73
[2021-12-10 08:31] LABS: BASOPHILS % 0.8 % (0.0-2.0); EOSINOPHILS % 5.9 % (0.0-5.0); HEMATOCRIT. 24.2 % (42.0-52.0); HEMOGLOBIN. 7.8 g/dL (14.0-18.0); LYMPHOCYTES % 19.3 % (20.0-50.0); MEAN CORPUSCULAR HEMOGLOBIN 25.9 pg (28.0-32.0); MEAN PLATELET VOLUME 7.4 fl (7.4-10.4); MONOCYTES % 10.5 % (2.0-8.0); NEUTROPHILS % 63.5 % (40.0-76.0); PLATELET 437 x1000/uL (130-400); RED BLOOD CELL COUNT 3.03 mill/uL (4.7-6.1); RED CELL DISTRIBUTION WIDTH 21.7 % (11.6-14.6)
[2021-12-10 08:37] LABS: CHLORIDE 107 mEq/L (98-107)
[2021-12-10] MEDS: PANTOPRAZOLE SODIUM 40 MG/VIAL IV SCH ×2 (08:57→16:33)
[2021-12-10 09:54] LABS: PROTHROMBIN TIME 11.2 sec (9.6-11.0)
[2021-12-10] MEDS: FERROUS SULFATE 325MG TABLET PO SCH (17:23)
[2021-12-10 20:00] VITALS: BP 108/65
[2021-12-10] MEDS: ASCORBIC ACID 250 MG TABLET PO SCH (21:37)
[2021-12-11] VITALS: BP 98/65
[2021-12-11 04:55] VITALS: BP 110/68
[2021-12-11] MEDS: HYDROCODONE/ACETAMINOPHEN 5/325MG TABLET PO PRN ×4 (05:38→20:50)
[2021-12-11] MEDS: CEFTRIAXONE 1,000 MG in DEXTROSE 5% WATER 50 ML IV SCH (05:44)
[2021-12-11 08:00] VITALS: BP 116/66
[2021-12-11] MEDS: FERROUS SULFATE 325MG TABLET PO SCH ×3 (08:35→16:29)
[2021-12-11] MEDS: ASCORBIC ACID 250 MG TABLET PO SCH ×2 (08:35→20:51)
[2021-12-11] MEDS: PANTOPRAZOLE SODIUM 40 MG/VIAL IV SCH ×2 (08:35→16:29)
[2021-12-11 10:26] LABS: BASOPHILS % 0.6 % (0.0-2.0); EOSINOPHILS % 7.4 % (0.0-5.0); HEMATOCRIT. 24.4 % (42.0-52.0); LYMPHOCYTES % 22.2 % (20.0-50.0); MEAN CORPUSCULAR HEMOGLOBIN 26.1 pg (28.0-32.0); MEAN CORPUSCULAR VOLUME 79.4 fL (80.0-94.0); MEAN PLATELET VOLUME 7.3 fl (7.4-10.4); NEUTROPHILS % 59.8 % (40.0-76.0); PLATELET 476 x1000/uL (130-400); RED BLOOD CELL COUNT 3.08 mill/uL (4.7-6.1)
[2021-12-11 10:28] LABS: CHLORIDE 107 mEq/L (98-107)
[2021-12-11 13:43] LABS: PLATELET ESTIMATE INCREASED
[2021-12-11 20:00] VITALS: BP 117/70
[2021-12-12] VITALS: BP 116/80
[2021-12-12] MEDS: HYDROCODONE/ACETAMINOPHEN 5/325MG TABLET PO PRN ×2 (02:57→20:44)
[2021-12-12 04:00] VITALS: BP 103/53
[2021-12-12] MEDS: CEFTRIAXONE 1,000 MG in DEXTROSE 5% WATER 50 ML IV SCH (05:45)
[2021-12-12 07:00] LABS: BASOPHILS % 0.7 % (0.0-2.0); EOSINOPHILS % 6.8 % (0.0-5.0); HEMATOCRIT. 27.3 % (42.0-52.0); HEMOGLOBIN. 8.6 g/dL (14.0-18.0); LYMPHOCYTES % 22.1 % (20.0-50.0); MEAN CORPUSCULAR HEMOGLOBIN 25.3 pg (28.0-32.0); MEAN PLATELET VOLUME 7.3 fl (7.4-10.4); MONOCYTES % 7.7 % (2.0-8.0); NEUTROPHILS % 62.7 % (40.0-76.0); PLATELET 531 x1000/uL (130-400); RED BLOOD CELL COUNT 3.41 mill/uL (4.7-6.1); RED CELL DISTRIBUTION WIDTH 22.8 % (11.6-14.6)
[2021-12-12 07:05] LABS: PROTHROMBIN TIME 11.2 sec (9.6-11.0)
[2021-12-12] MEDS: FERROUS SULFATE 325MG TABLET PO SCH ×3 (07:40→17:40)
[2021-12-12 08:00] VITALS: BP 122/80
[2021-12-12 08:05] LABS: CHLORIDE 108 mEq/L (98-107)
[2021-12-12] MEDS: ASCORBIC ACID 250 MG TABLET PO SCH ×2 (09:00→20:41)
[2021-12-12] MEDS: PANTOPRAZOLE SODIUM 40 MG/VIAL IV SCH ×2 (09:12→17:00)
[2021-12-12] MEDS ORDERED: LIDOCAINE HCL 1% 30ML VIAL (10MG/ML) ONE ×2 (11:53→12:34)
[2021-12-12] MEDS ORDERED: FENTANYL CITRATE/PF 50MCG/ML 2ML VIAL IV PRN (16:15)
[2021-12-12] MEDS ORDERED: MIDAZOLAM HCL 5 MG/5 ML VIAL ONE (16:15)
[2021-12-12] MEDS ORDERED: FENTANYL CITRATE/PF 50MCG/ML 2ML VIAL ONE (16:15)
[2021-12-12] MEDS ORDERED: MIDAZOLAM HCL 5 MG/5 ML VIAL IV PRN (16:16)
[2021-12-12] MEDS: SUCRALFATE 1G TABLET PO SCH ×2 (18:07→20:41)
[2021-12-12 20:00] VITALS: BP 110/61
[2021-12-13] MEDS: HYDROCODONE/ACETAMINOPHEN 5/325MG TABLET PO PRN ×2 (01:01→09:51)
[2021-12-13 06:02] LABS: BASOPHILS % 0.6 % (0.0-2.0); EOSINOPHILS % 5.5 % (0.0-5.0); HEMATOCRIT. 24.8 % (42.0-52.0); HEMOGLOBIN. 7.9 g/dL (14.0-18.0); LYMPHOCYTES % 23.3 % (20.0-50.0); MEAN CORPUSCULAR HEMOGLOBIN 25.4 pg (28.0-32.0); MEAN CORPUSCULAR VOLUME 80.2 fL (80.0-94.0); MEAN PLATELET VOLUME 7.2 fl (7.4-10.4); MONOCYTES % 6.7 % (2.0-8.0); NEUTROPHILS % 63.9 % (40.0-76.0); PLATELET 490 x1000/uL (130-400); RED BLOOD CELL COUNT 3.09 mill/uL (4.7-6.1); RED CELL DISTRIBUTION WIDTH 21.9 % (11.6-14.6)
[2021-12-13 06:13] LABS: CHLORIDE 107 mEq/L (98-107)
[2021-12-13] MEDS: FERROUS SULFATE 325MG TABLET PO SCH ×2 (06:30→13:00)
[2021-12-13] MEDS: SUCRALFATE 1G TABLET PO SCH ×2 (06:30→13:00)
[2021-12-13] MEDS: CEFTRIAXONE 1,000 MG in DEXTROSE 5% WATER 50 ML IV SCH (06:30)
[2021-12-13 08:00] VITALS: BP 102/60
[2021-12-13] MEDS ORDERED: SUCR1TAB30 PO (09:25)
[2021-12-13] MEDS ORDERED: OMEP40CA20 MT (09:25)
[2021-12-13] MEDS: PANTOPRAZOLE SODIUM 40 MG/VIAL IV SCH (09:49)
[2021-12-13] MEDS: ASCORBIC ACID 250 MG TABLET PO SCH (09:51)
[2021-12-13 12:00] VITALS: BP 93/51
[2021-12-13 13:48] VITALS: BP 93/51
== END 2021-12-13 15:44 | disposition home or self-care (01) | DRG 378 ==
LOC: ER 22:12 → MICUSO 12-08 01:31 → 8WST 12-08 10:00
PROVIDERS: ADMIT Internal Medicine; ATTEND Internal Medicine
PROC: 30233N1 Transfusion of Nonautologous Red Blood Cells into Peripheral Vein, Percutaneous Approach (ICD-10-PCS; principal; 2021-12-08)
PROC: 02HV33Z Insertion of Infusion Device into Superior Vena Cava, Percutaneous Approach (ICD-10-PCS; 2021-12-12)
PROC: B548ZZA Ultrasonography of Superior Vena Cava, Guidance (ICD-10-PCS; 2021-12-12)
PROC: B5181ZA Fluoroscopy of Superior Vena Cava using Low Osmolar Contrast, Guidance (ICD-10-PCS; 2021-12-12)
PROC: 0DB68ZX Excision of Stomach, Via Natural or Artificial Opening Endoscopic, Diagnostic (ICD-10-PCS; 2021-12-13)
PROC: 0DB78ZX Excision of Stomach, Pylorus, Via Natural or Artificial Opening Endoscopic, Diagnostic (ICD-10-PCS; 2021-12-13)
DX: K29.71 Gastritis, unspecified, with bleeding (principal); N39.0 Urinary tract infection, site not specified; E44.1 Mild protein-calorie malnutrition; E87.1 Hypo-osmolality and hyponatremia; G82.20 Paraplegia, unspecified; D50.9 Iron deficiency anemia, unspecified; K25.4 Chronic or unspecified gastric ulcer with hemorrhage; Z20.822 Contact with and (suspected) exposure to COVID-19; E78.5 Hyperlipidemia, unspecified; K80.20 Calculus of gallbladder without cholecystitis without obstruction; I10 Essential (primary) hypertension; E78.00 Pure hypercholesterolemia, unspecified; Z93.3 Colostomy status; Z79.82 Long term (current) use of aspirin; Z79.899 Other long term (current) drug therapy; Z68.26 Body mass index [BMI] 26.0-26.9, adult
CPT/HCPCS: 36415; 36573; 71045; 74018; 74177; 80048; 80053; 80305; 80320; 81003; 82607; 82728; 82746; 83540; 83550; 83880; 84484; 85014; 85018; 85025; 85044; 86850; 86900; 86920; 87426; 88305; 88312; 88313; 93005; 99291; C1725; C1769; C9113; J0696; J2250; J2270; J2405; J3010; J3490; J7030; J7060; P9016; Q9967; G0480